=== PATIENT | male | born 1945 | race Caucasian/White ===

== ENCOUNTER 2017-05-23 15:38 | Observation (INO) ==
[2017-05-23] MEDS ORDERED: Nitroglycerin 0.4 MG TAB.SUBL SL PRN (16:08)
--- NOTE | 2017-05-23 16:08 | Emergency Department Note ---
Disposition Clinical Impression: Dizziness Chest pain Qualifiers: Chest pain type: unspecified Qualified Code(s): R07.9 - Chest pain, unspecified Disposition: Admitted As Inpatient Condition: Good Referrals: NONE,PCP [Primary Care Provider] - Forms: ED Satisfaction Letter Dizziness HPI - General Chief Complaint: ED Dizziness Stated Complaint: Weakness / Dizziness Time Seen by Provider: 05/23/17 15:45 Source: patient Mode of arrival: EMS Limitations: no limitations Nursing Notes Reviewed: Yes Vital Signs Reviewed: Yes - History of Present Illness HPI Narrative: 72-year-old male history of hypertension and hyperlipidemia presents to the ER via EMS with a chief complaint of dizziness, diaphoresis and chest pain. Patient reports that this morning around lunch when he was standing up he felt dizzy and broke out in a sweat. He states he went and laid down and the room was spinning whenever he was looking at the ceiling. He states he walked back in to the family room and he broke out into a sweat again. Patient called EMS for transport. Upon arrival he reports that his chest feels funny like there is pressure on it. He denies a prior history of CAD, PE. He reports a stress test several years ago without issue. He denies fevers, shortness of breath, cough, nausea, vomiting, diarrhea. Pt Subjective Complaint: dizziness Onset (ago): hour(s) Timing: sudden onset Description: "room spinning" History of similar episodes: No History of trauma: No Severity: moderate Improves with: remaining still Worsens with: nothing Associated symptoms: Reports: chest pain, diaphoresis. Denies: fever, shortness of breath, syncope - Related Data Home Medications Medication Instructions Recorded Confirmed Atorvastatin Calcium [Lipitor] 20 mg PO HS 04/08/16 05/23/17 Calcitriol 0.5 mcg PO DAILY 04/08/16 05/23/17 Calcium Carbonate/Vitamin D3 2 tab PO BID 04/08/16 05/23/17 [Calcium 600 + Vit D Tablet] Levothyroxine [Synthroid] 125 mcg PO MOTUWETHFRSA 04/08/16 05/23/17 Losartan Potassium [Cozaar] 50 mg PO BID 04/08/16 05/23/17 Metoprolol Tartrate [Lopressor] 50 mg PO TID 04/08/16 05/23/17 Omeprazole [PriLOSEC] 20 mg PO DAILY 04/08/16 05/23/17 Polyethylene Glycol 3350 [MiraLAX 1 scoop PO DAILY 04/08/16 05/23/17 Powder Bulk 17.9 Oz] hydrOXYzine HCl [Hydroxyzine HCl] 50 mg PO HS 04/08/16 05/23/17 Levothyroxine [Synthroid] 75 mcg PO JURADO 04/30/16 05/23/17 Allergies Allergy/AdvReac Type Severity Reaction Status Date / Time aspirin [ASA] Allergy Hives Verified 05/23/17 17:04 Penicillins [PCN] Allergy Rash Verified 05/23/17 17:04 All systems ED: reviewed and negative except as stated. Constitutional: Denies: fever Cardiovascular: Reports: chest pain Respiratory: Denies: cough, dyspnea Gastrointestinal: Denies: abdominal pain, nausea, vomiting Neurological: Reports: other (Dizziness) Past Medical History - Past Medical History Attestation: Yes The following information was validated with the patient. Source: patient Medical history: Reports: cancer, GERD, hyperlipidemia, hypertension, other Surgical history: Reports: cancer surgery, splenectomy, thyroidectomy, other Psychiatric history: Reports: no psych history - Social History Smoking Status: Never smoker Smokeless Tobacco Status: No Alcohol use: Reports: none Drug use: Reports: none Physical Exam - General Limitations: no limitations General appearance: alert, in no apparent distress - Head Head exam: atraumatic, normocephalic, normal inspection - Eye Eye exam: Present: normal appearance, EOMI - ENT ENT exam: normal exam - Neck Neck exam: Present: normal inspection, full ROM - Chest Chest inspection: Present: normal inspection, symmetric chest wall rise - Respiratory Respiratory exam: Present: normal lung sounds bilaterally - Cardiovascular Cardiovascular exam: Present: regular rate, normal rhythm, normal heart sounds - Abdominal Exam Abdominal exam: Present: soft, Non-Tender. Absent: tenderness - Extremities Exam Extremities exam: Present: normal inspection, full ROM - Expanded Upper Extremity Exam Shoulder exam: Present: normal inspection, full ROM Arm exam: Present: normal inspection, full ROM Elbow exam: Present: normal inspection, full ROM Forearm/Wrist exam: Present: normal inspection, full ROM Hand exam: Present: normal inspection, full ROM - Expanded Lower Extremity Exam Hip/Pelvis exam: Present: normal inspection, full ROM Upper leg exam: Present: normal inspection, full ROM Knee exam: Present: normal inspection, full ROM Lower leg exam: Present: normal inspection, full ROM Ankle exam: Present: normal inspection, full ROM Foot/toe exam: Present: normal inspection, full ROM Neurovascular/Tendon exam: Absent: motor deficit, sensory deficit - Neurological Exam Neurological exam: Present: alert, other (GCS 15. Nonfocal neurologic exam. Moves all extremities equally.) - Psychiatric Psychiatric exam: Present: normal affect, normal mood - Skin Skin exam: Present: warm, dry, intact, normal color Course Course Narrative: Patient seen and examined. Vital signs reviewed. He continues to have chest pressure here. We will get an EKG, chest x-ray as well as labs including troponin. Patient ordered nitroglycerin for chest pain. - Reevaluation(s) Reevaluation #1: I discussed results of imaging and lab work with the patient. He reports improvement in his symptoms after nitroglycerin. He is agreeable with be admitted to the hospital. Vital Signs Temperature 98.8 F 05/23/17 15:43 Pulse Rate 84 05/23/17 15:43 Respiratory Rate 14 05/23/17 15:43 Blood Pressure 147/87 05/23/17 15:43 O2 Sat by Pulse Oximetry 98 05/23/17 15:43 Temperature 98.8 F 05/23/17 15:43 Pulse Rate 80 05/23/17 17:48 Respiratory Rate 14 05/23/17 17:48 Blood Pressure 102/78 05/23/17 17:48 O2 Sat by Pulse Oximetry 96 05/23/17 17:48 Oxygen Delivery Oxygen Delivery Room Air Dizziness - MDM Narrative Medical decision making narrative: 72-year-old male presents to the ER due to dizziness and chest pain. Reports dizziness as well as diaphoresis this morning after standing. He continued to have chest pressure throughout the afternoon. His EKG is nonischemic. Troponin is negative. Patient given aspirin and nitroglycerin with improvement of his symptoms. Admitted to the hospitalist service for chest pain. - Lab Data Lab results reviewed: Yes I reviewed the patient's lab results. Result diagrams: 05/23/17 16:22 05/23/17 16:22 Lab Results 05/23/17 05/23/17 05/23/17 Range/Units 16:22 16:22 16:22 WBC 9.8 (4.3-11.1) K/mcL RBC 4.68 (4.19-5.50) M/mcL Hgb 12.1 L (12.9-16.9) g/dL Hct 38.0 (37.5-50.1) % MCV 81.2 L (83.0-100.0) fL MCH 25.9 L (28.0-33.3) pg MCHC 31.8 (31.6-35.5) g/dL RDW 16.4 H (11.5-14.5) % Plt Count 368 (140-400) K/mcL MPV 10.0 (9.4-12.4) fL Immature Gran % 0.3 (0-4) % Seg Neutrophils % 67.2 % Lymphocytes % 21.4 % Monocytes % 8.4 % Eosinophils % 2.2 % Basophils % 0.5 % Neutrophils # 6.6 (1.6-8.9) K/mcL Lymphocytes # 2.1 (0.6-4.6) K/mcL Monocytes # 0.8 (0.0-1.3) K/mcL Eosinophils # 0.2 (0.0-0.6) K/mcL Basophils # 0.1 (0.0-0.2) K/mcL Sodium 139 (136-145) mEq/L Potassium 4.4 (3.5-4.5) mEq/L Chloride 104 (98-109) mEq/L Carbon Dioxide 27 (19-29) mEq/L BUN 18 (8-26) mg/dL Creatinine 1.06 (0.72-1.25) mg/dL Est GFR ( Amer) > 60 (> 60) Est GFR (Non-Af Amer) > 60 (> 60) BUN/Creatinine Ratio 17 (6-26) Glucose 124 H (70-99) mg/dL Calculated Osmolality 291 (280-300) Calcium 9.0 (8.6-10.8) mg/dL Troponin I 0.02 (0-0.03) ng/mL B-Natriuretic Peptide (0-100) pg/mL 05/23/17 Range/Units 16:22 WBC (4.3-11.1) K/mcL RBC (4.19-5.50) M/mcL Hgb (12.9-16.9) g/dL Hct (37.5-50.1) % MCV (83.0-100.0) fL MCH (28.0-33.3) pg MCHC (31.6-35.5) g/dL RDW (11.5-14.5) % Plt Count (140-400) K/mcL MPV (9.4-12.4) fL Immature Gran % (0-4) % Seg Neutrophils % % Lymphocytes % % Monocytes % % Eosinophils % % Basophils % % Neutrophils # (1.6-8.9) K/mcL Lymphocytes # (0.6-4.6) K/mcL Monocytes # (0.0-1.3) K/mcL Eosinophils # (0.0-0.6) K/mcL Basophils # (0.0-0.2) K/mcL Sodium (136-145) mEq/L Potassium (3.5-4.5) mEq/L Chloride (98-109) mEq/L Carbon Dioxide (19-29) mEq/L BUN (8-26) mg/dL Creatinine (0.72-1.25) mg/dL Est GFR ( Amer) (> 60) Est GFR (Non-Af Amer) (> 60) BUN/Creatinine Ratio (6-26) Glucose (70-99) mg/dL Calculated Osmolality (280-300) Calcium (8.6-10.8) mg/dL Troponin I (0-0.03) ng/mL B-Natriuretic Peptide 135 H (0-100) pg/mL - Radiology Data Radiology results reviewed: Yes I reviewed the patient's radiology results. Chest X-Ray 05/23/17 15:45 IMPRESSION: Negative portable study. D/ / Cecilia Clifford Cha, MD / Cecilia Clifford Cha, MD Interpreting Provider: Cecilia Clifford Cha, MD - EKG Data EKG attestation: Yes I reviewed and interpreted this EKG. EKG results narrative: EKG demonstrates sinus rhythm with a rate of 85 bpm. Normal axis. Normal intervals. No ST elevations or depressions. No acute ischemic findings. S.B.A.R. - S.B.A.R. Situation: Demographics, MOA Background: Presenting Complaint, Relevant PMH, Meds, & Allergies Assessment: Vital Signs, Course and respsone to treatment, Exam Concerns, Patient/Family Expectation, Pertinant Lab Results, Outstanding Labs Recommendation: Barrier(s) to disposition, Recommendation based on pending studies, treatments, or consults Kate Report Given to: Colleen Love Repor Time: 18:02
[2017-05-23 16:38] LABS: Basophils # 0.1 K/mcL (0.0-0.2); Basophils % 0.5 %; Eosinophils # 0.2 K/mcL (0.0-0.6); Eosinophils % 2.2 %; Hemoglobin 12.1 g/dL (12.9-16.9); Immature Granulocytes % 0.3 % (0-4); Lymphocytes # 2.1 K/mcL (0.6-4.6); Lymphocytes % 21.4 %; Mean Corpuscular HGB Conc 31.8 g/dL (31.6-35.5); Mean Corpuscular Hemoglobin 25.9 pg (28.0-33.3); Mean Corpuscular Volume 81.2 fL (83.0-100.0); Monocytes # 0.8 K/mcL (0.0-1.3); Monocytes % 8.4 %; Neutrophils # 6.6 K/mcL (1.6-8.9); Platelet Count 368 K/mcL (140-400); Red Blood Count 4.68 M/mcL (4.19-5.50); Red Cell Distribution Width 16.4 % (11.5-14.5); Segmented Neutrophils % 67.2 %
--- NOTE | 2017-05-23 16:48 | Emergency Department Note ---
START Narrative - START START: I examined this patient and my medical decision-making was reviewed with the Resident Physician. I agree with the documented findings, disposition and treatment plan as described except to the extent set forth below. 72yo M here for dizziness, near syncope. ekg normal admit for cardiac obs.
[2017-05-23 16:51] LABS: BUN/Creatinine Ratio 17 (6-26); Blood Urea Nitrogen 18 mg/dL (8-26); Carbon Dioxide 27 mEq/L (19-29); Chloride 104 mEq/L (98-109); Glucose 124 mg/dL (70-99); Osmolality,Calculated 291 (280-300); Potassium 4.4 mEq/L (3.5-4.5); Sodium 139 mEq/L (136-145); eGFR For African Americans > 60 (> 60); eGFR For Non-African Americans > 60 (> 60)
[2017-05-23] MEDS ORDERED: Naloxone 0.4 MG/ML INJ IVP PRN (19:39)
[2017-05-23] MEDS ORDERED: Ondansetron 4 MG/2 ML VIAL IVP PRN (19:39)
--- NOTE | 2017-05-23 20:50 | Internal Med History&Physical ---
<Colleen Stratton - Last Filed: 05/23/17 20:41> Date of Encounter: 05/23/17 Time of Encounter: 20:41 Assessment and Plan (1) Chest pain Current visit: Yes Status: Acute 1 patient had episode of dizziness and diaphoretic nausea and midsternal chest pressure. This episode lasted approximately 30 minutes and was relieved with nitroglycerin. He does have past history of high blood pressure and hyperlipidemia no cardiac history in the past. His father did from an NC at age 75. Past stress test was in 2011 which was negative for ischemia. His troponin is 0.02 we will continue to trend troponins 2 continuous cardiac monitoring 3 nitrates and morphine as needed for chest pain 4 oxygen as needed 5 patient is allergic to aspirin we will give Plavix 6 we will continue with beta suyapa and statin we will check lipid profile 7 we will check TSH 8 we will obtain cardiac echo 9 patient nothing by mouth after midnight- cardiac stress in a.m. 10 consult cardiology as needed Qualifiers: Chest pain type: unspecified Qualified Code(s): R07.9 - Chest pain, unspecified (2) Hypertension Current visit: No Status: Chronic 1 presently controlled we will continue with losartan goal is to maintain systolic less than 140 2 low sodium diet Qualifiers: Hypertension type: essential hypertension Qualified Code(s): I10 - Essential (primary) hypertension (3) Thyroid disease Current visit: No Status: Chronic 1 patient has past history of thyroid cancer with thyroidectomy. We will check TSH we will consider with Synthroid (4) Hyperlipidemia Current visit: No Status: Chronic Continue with statin we will check lipids Qualifiers: Hyperlipidemia type: unspecified Qualified Code(s): E78.5 - Hyperlipidemia , unspecified (5) DVT prophylaxis Current visit: Yes Status: Acute [facility] Internal Medicine - H&P: HPI Chief complaint: CP dizziness Admitted From: Emergency Dept Plans for Post Hospital Care: Home History of present illness: Mr. Kerns is a 72 year old male past medical history of hypertension Hodgkin' s lymphoma with splenectomy 1971 thyroid cancer with total thyroidectomy in 2007 hyperlipidemia. According to the patient he was sitting at his computer around lunchtime when he stood up and he felt dizzy. Broke out in a cold sweat. He states he went to lie down and he felt that the room was spinning whenever he would look at the ceiling he then walked back to his family room and he broke out into cold sweating again and he felt nauseated and lightheaded and had a chest pressure 4/5 midsternal nonradiating. There were no relieving or aggravating factors the episode lasted approximately 30 minutes. He did call EMS upon arrival they did give him nitroglycerin which did relieve his chest pressure. He was brought to the ER for evaluation. Upon arrival to the ER lab work did reveal BNP 135 troponin was 0.02 with a lab work was within unremarkable. Chest x-ray was completed which was clear. EKG normal sinus rhythm with no ST-T wave abnormalities. His been admitted for further workup and evaluation. Domenico patient denies any chest pain he does not appear to be for distress. He denies any fevers chills nausea vomiting diarrhea abdominal pain or shortness of breath. He does say he had a stress test in 1999 1208 he has had no other cardiac workup. He does not have a cardiac history His lung sounds are clear heart sounds are regular S1 and S2 he does have a systolic murmur 3/6. Abdomen soft and nontender he does have pedal edema which she states is chronic. He is sinus rhythm on the monitor he is hemodynamically stable this time. I reviewed his case with Dr. Rob who agrees with plan Past Med Surg Social Fam HX - Past Medical History Medical history: cancer, GERD, hyperlipidemia, hypertension, other Psychiatric history: no psych history - Past Surgical History Surgical History: cancer surgery, splenectomy, thyroidectomy, other - Social History Smoking Status: Never smoker Smokeless Tobacco Status: No Alcohol use: none Drug use: none - Family History Father Hx Family Cardiac Disorders: Yes (NC, HTN) Mother Hx Family Neurologic Disorders: Yes (CVA) Internal Medicine - H&P: Meds Atorvastatin Calcium [Lipitor] 20 mg PO HS 04/08/16 [History] Calcitriol 0.5 mcg PO DAILY 04/08/16 [History] Calcium Carbonate/Vitamin D3 [Calcium 600 + Vit D Tablet] 2 tab PO BID 04/08/16 [History] Levothyroxine [Synthroid] 125 mcg PO MOTUWETHFRSA 04/08/16 [History] Losartan Potassium [Cozaar] 50 mg PO BID 04/08/16 [History] Metoprolol Tartrate [Lopressor] 50 mg PO TID 04/08/16 [History] Omeprazole [PriLOSEC] 20 mg PO DAILY 04/08/16 [History] Polyethylene Glycol 3350 [MiraLAX Powder Bulk 17.9 Oz] 1 scoop PO DAILY [History] hydrOXYzine HCl [Hydroxyzine HCl] 50 mg PO HS 04/08/16 [History] Levothyroxine [Synthroid] 75 mcg PO JURADO 04/30/16 [History] 3 Allergy/AdvReac Type Severity Reaction Status Date / Time aspirin [ASA] Allergy Hives Verified 05/23/17 17:04 Penicillins [PCN] Allergy Rash Verified 05/23/17 17:04 All Systems PM: A 10-system review of systems was performed and is negative for pertinent findings except as documented above in the HPI. - Constitutional Constitutional: fatigue, no chills, no fever(s), no night sweats - EENT Eyes: no change in vision, no discharge, no pain, no photophobia Nose, mouth and throat: no dysphagia, no nasal discharge, no neck pain, no sore throat - Cardiovascular Cardiovascular ROS IM: chest pain, diaphoresis, edema, lightheadedness, no dyspnea, no palpitations, no syncope - Respiratory Respiratory: no cough, no dyspnea, no wheezing, no excessive phlegm production - Gastrointestinal Gastrointestinal: no abdominal pain, no diarrhea, no hematemesis, no hematochezia, no melena, no nausea, no vomiting - Musculoskeletal Musculoskeletal ROS IM: no numbness, no tingling - Integumentary Integumentary IM: no rash, no unusual bruising - Neurological Neurological ROS: no confusion, no convulsions, no focal weakness, no numbness, no tingling, no tremor(s) - Hematologic/Lymphatic Hematologic/Lymphatic: no easy bruising - Constitutional Vitals: Temp Pulse Resp BP Pulse Ox 97.6 F 92 16 137/82 100 05/23/17 19:20 05/23/17 19:20 05/23/17 19:20 05/23/17 19:20 05/23/17 19:20 General appearance: Present: A&O X 3, answers questions appropriately - Head Head exam: Present: atraumatic, normocephalic - Eye Eye exam: Present: PERRL, conjuntiva pink, sclera anicteric Pupils: Present: PERRL - Neck Neck exam general surgery: Present: supple, trachea midline. Absent: lymphadenopathy - Respiratory Respiratory exam: Present: CTAB. Absent: accessory muscle use, rales, rhonchi, wheezes - Cardiovascular Cardiovascular exam: Present: RRR, +S1, +S2, systolic murmur. Absent: diastolic murmur, gallop, rubs - GI/Abdominal GI/Abdominal exam: Present: normal bowel sounds, soft, no peritoneal signs. Absent: distended, tenderness - Extremities Exam Extremities exam: Present: warm, radial pulses palpable and symmetrical. Absent : calf tenderness, cyanotic, pedal edema - Neurological Exam Neurological exam: Present: CN II-XII intact, oriented X3, no focal deficits. Absent: pronater drift, facial droop, speech deficit - Skin Skin exam: Present: dry, intact Internal Med - H&P Results - Labs CBC & Chem 7: 05/23/17 16:22 05/23/17 16:22 - EKG Data EKG shows normal: sinus rhythm - EKG Data Prior EKG available for review: no - Diagnostic Studies Chest x-ray Additional comments: Chest X-Ray 05/23/17 15:45 IMPRESSION: Negative portable study. D/ / Cecilia Clifford Cha, MD / Cecilia Clifford Cha, MD Interpreting Provider: Cecilia Clifford Cha, MD <Kolby Rob - Last Filed: 05/23/17 23:34> Date of Encounter: 05/23/17 Internal Medicine - H&P: HPI History of present illness: Mr. Kerns is a 72 year old male All Systems PM: A 10-system review of systems was performed and is negative for pertinent findings except as documented above in the HPI. - Constitutional Vitals: Temp Pulse Resp BP Pulse Ox 97.6 F 92 16 137/82 100 05/23/17 19:20 05/23/17 19:20 05/23/17 19:20 05/23/17 19:20 05/23/17 19:20 Internal Med - H&P Results - Labs CBC & Chem 7: 05/23/17 16:22 05/23/17 16:22 - Attending Attestation I independently obtained history and examined this patient and my medical decision-making was reviewed with the nurse practitioner, Colleen Stratton. I agree with the documented findings, disposition and treatment plan as described. My findings are summarized below: Patient presented today with sudden onset of severe dizziness and feeling faint. His symptoms got worse when he went to lie down and started having severe spinning sensation. Also experienced mild to moderate substernal chest pressure that lasted for about an hour. On exam he is in no acute distress heart auscultation reveals regular S1-S2. Lungs are clear Troponin was 0.02, EKG reviewed by myself shows normal sinus rhythm 85 bpm, no ST or T-wave changes. Assessment and plan: We will place in observation and start workup for syncope including heart monitor, trend troponin, echocardiogram and orthostatic vital signs.
[2017-05-23] MEDS ORDERED: hydrOXYzine pamoate 25 MG CAPSULE PO SCH (21:00)
[2017-05-23] MEDS ORDERED: Acetaminophen 325 MG TABLET PO PRN (21:04)
[2017-05-23] MEDS ORDERED: *HR* Morphine 2 MG/ML SYRINGE IVP PRN (21:04)
[2017-05-23] MEDS ORDERED: 0.9 % Sodium Chloride 1,000 ML IVC SCH (21:30)
[2017-05-24 05:36] LABS: Basophils # 0.1 K/mcL (0.0-0.2); Basophils % 0.5 %; Eosinophils # 0.3 K/mcL (0.0-0.6); Eosinophils % 3.5 %; Hematocrit 35.6 % (37.5-50.1); Hemoglobin 11.8 g/dL (12.9-16.9); Immature Granulocytes % 0.2 % (0-4); Lymphocytes # 3.8 K/mcL (0.6-4.6); Lymphocytes % 38.5 %; Mean Corpuscular HGB Conc 33.1 g/dL (31.6-35.5); Mean Corpuscular Hemoglobin 26.7 pg (28.0-33.3); Mean Corpuscular Volume 80.5 fL (83.0-100.0); Mean Platelet Volume 9.7 fL (9.4-12.4); Monocytes # 1.1 K/mcL (0.0-1.3); Monocytes % 11.7 %; Neutrophils # 4.5 K/mcL (1.6-8.9); Platelet Count 346 K/mcL (140-400); Red Blood Count 4.42 M/mcL (4.19-5.50); Red Cell Distribution Width 16.5 % (11.5-14.5); Segmented Neutrophils % 45.6 %
[2017-05-24 05:42] LABS: BUN/Creatinine Ratio 14 (6-26); Blood Urea Nitrogen 14 mg/dL (8-26); Calcium 8.4 mg/dL (8.6-10.8); Carbon Dioxide 27 mEq/L (19-29); Chloride 106 mEq/L (98-109); Chol/HDL Ratio 4.4 (0-4.9); Cholesterol 160 mg/dL (< 200); Glucose 101 mg/dL (70-99); HDL Cholesterol 36 mg/dL (40-59); LDL Cholesterol,Calculated 105 mg/dL (0-99); Magnesium 1.7 mg/dL (1.6-2.6); Osmolality,Calculated 289 (280-300); Potassium 4.5 mEq/L (3.5-4.5); Sodium 139 mEq/L (136-145); Triglycerides 96 mg/dL (< 150); eGFR For African Americans > 60 (> 60); eGFR For Non-African Americans > 60 (> 60)
[2017-05-24 05:58] LABS: Thyroid Stimulating Hormone 0.285 mcIU/mL (0.350-4.840)
[2017-05-24] MEDS ORDERED: *HR* Enoxaparin 40 MG/0.4 ML SYRINGE SQ SCH (07:00)
[2017-05-24] MEDS ORDERED: Regadenoson 0.4 MG/5 ML SYRINGE IVP ONE (07:06)
--- NOTE | 2017-05-24 12:19 | Nuclear Medicine Stress Report ---
Regadenoson Nuclear Stress Name: Wm Kerns Date of Study: 05/24/2017 Date: 1945 Ht: 68.0 in Medical Record#: [id number] Age: 72 Wt: 218.0 lb Gender: Male Order #: [id number] Location: [facility] Room: [facility] Supervising Provider: Genny Gan CNP Reading Physician: Rosanna Otto DO Ordering Physician: Callie Aleman CNP Primary Care Physician: Fidencio Garcia MD Stress Technologist: Cielo Small, TEAROOM HOST/HOSTESS, CCT, CPFT Relief Operator: Eduardo Patrick Indications: Chest Pain, Syncope Impression: Perfusion imaging was negative for ischemia or infarct. Pharmacologic ECG was negative for ischemia at the level of heart rate achieved. Gated EF = >70%. History: Hypertension Hypercholesteremia Stress Test Summary: Stress Test Type: Pharmacologic Regadenoson 0.4mg/5ml given IV Baseline Information: Initial Heart Rate: 89 Blood Pressure: 128/86 Stress Information: Stress Time: 4 min sec Test Terminated Due to (primary): As per protocol Maximum Blood Pressure: 104/50 Maximum Heart Rate: 102 Percent Maximum Heart Rate Achieved: 68 Double Product: [id number] METS Reached: 1 Symptoms: Shortness of breath, Nausea, Dizziness Nuclear Summary: SPECT myocardial perfusion imaging using Tc99m Sestamibi given intravenously was performed at rest and following cardiac stress testing. The resting images were obtained following initial dose of 11.5 mCi. Following stress an additional dose of 31.7 mCi was given at peak exercise or 30 seconds post regadenoson infusion. Medication Given: Time Medication Dose Units Route Findings: Stress Note * Resting ECG demonstrated normal sinus rhythm. * Pharmacologic stress ECG is negative for ischemia at level of heart rate achieved. * No arrhythmias were noted during stress. * Patient had no chest pain during stress. Hemodynamic responses * Normal hemodynamic responses to pharmacologic stress. Study Quality * Study quality was fair. Gated EF > 70% * Gated EF > 70%. Left Ventricle * The left ventricle is not dilated. TID * No evidence of transient ischemic dilatation. Lung Uptake * There is no evidence of increase lung uptake. NORMALS * Normal wall motion. PERFUSION * Homogeneous rest and stress radiotracer perfusion uptake without evidence for infarct or ischemia. Updated by Rosanna Otto on 05/24/2017 12:14:21 PM electronically signed on 05/24/2017 12:16:12 PM with status of Final
--- NOTE | 2017-05-24 18:05 | Electrocardiograph Report ---
[place] [id number] Test Date: 2017-05-23 Pat Name: Wm Kerns Department: 102 Room: 3B38 Gender: M [employer] Attendant: Ekp : 1945 Requested By: Christiano Ferrer Order Number: [id number] Reading MD: Zafar Singer MD Measurements Intervals [place] Rate: 85 P: 41 SC: 180 QRS: 21 QRSD: 80 T: 25 QT: 365 QTc: 407 Interpretive Statements SINUS RHYTHM BASELINE ARTIFACT Electronically Signed On 05-24-2017 18:03:37 EDT by Zafar Singer MD
[2017-05-24 18:43] VITALS: BP 131/81
--- NOTE | 2017-05-24 19:08 | Internal Med Progress Note ---
Date of Encounter: 05/24/17 Time of Encounter: 16:30 - Assessment and plan (1) Chest pain Current Visit: Yes Status: Acute Assessment and plan: Episode of dizziness, diaphoresis, nausea, midsternal chest pressure that lasted 30 minutes prior to arrival. Resolved with nitroglycerin in the emergency department. Troponins were negative 3. Chest x-ray negative for any acute disease processes. Stress test negative for ischemia or infarct with a gated EF of greater than 70%. Echo results are still pending. Patient denies chest pain, dizziness, nausea, diaphoresis. There is no peripheral edema. His lungs are clear. Continue telemetry Nitrates and morphine as needed for chest pain Oxygen as needed to maintain sats greater than 92% Patient is allergic to aspirin so he was started on Plavix Continue beta suyapa and statin Echocardiogram and stress test ordered and pending Consult cardiology as needed. Qualifiers: Chest pain type: unspecified Qualified Code(s): R07.9 - Chest pain, unspecified (2) Dizziness Current Visit: Yes Status: Acute Assessment and plan: Dizziness was a symptom of initial onset of problems. He has had none since. Resolved. (3) Hypertension Current Visit: No Status: Resolved Qualifiers: Hypertension type: essential hypertension Qualified Code(s): I10 - Essential (primary) hypertension (4) Thyroid disease Current Visit: No Status: Chronic Assessment and plan: Patient has history of thyroid cancer and thyroidectomy. Continue Synthroid. TSH is low at 0.285. Follow-up with primary care for medication adjustments as needed. (5) Hyperlipidemia Current Visit: No Status: Chronic Assessment and plan: Chronic. Continue home medications. Qualifiers: Hyperlipidemia type: unspecified Qualified Code(s): E78.5 - Hyperlipidemia , unspecified (6) DVT prophylaxis Current Visit: Yes Status: Acute Assessment and plan: Lovenox subcutaneous. - Time Spent With Patient less than 15 minutes - Subjective Interval history: Patient was seen and examined at 1630 with [place] [employer]arshal in the room. He reports lying down to take a nap yesterday, reporting that the room was spinning and he had some midsternal chest tightness without radiation. He says he was nauseated profusely diaphoretic and soaked his clothing. Initially this morning he refused his echocardiogram because he did not know what it was. He also delayed the start of his stress test because he was concerned about cost. He said that he just bought a new car and actually called the car dealership to try to return the car as he was worried about leaving his with a large bill. Later in the afternoon, his echocardiogram has not been done and as we are looking for the results, he became angry and required intervention of the [place] marshal. Initially he was going to sign out AMA, however I did finally get to assess him and as of this time 1900, his echo results are not back. Patient was okay with spending the night and getting results in the morning. He denies any other chest pain, nausea, vomiting, diaphoresis, dizziness since the episode prior to arrival. - Constitutional Vitals: Temp Pulse Resp BP Pulse Ox 98.2 F 84 14 131/81 96 05/24/17 18:42 05/24/17 18:42 05/24/17 18:42 05/24/17 18:42 05/24/17 18:42 General appearance: Present: A&O X 3, answers questions appropriately - Head Head exam: Present: atraumatic, normocephalic - Eye Eye exam: Present: PERRL, conjuntiva pink, sclera anicteric Pupils: Present: PERRL - Neck Neck exam general surgery: Present: supple, trachea midline. Absent: lymphadenopathy - Respiratory Respiratory exam: Present: CTAB. Absent: accessory muscle use, rales, rhonchi, wheezes - Cardiovascular Cardiovascular exam: Present: RRR, +S1, +S2. Absent: diastolic murmur, gallop, rubs, systolic murmur - GI/Abdominal GI/Abdominal exam: Present: normal bowel sounds, soft, no peritoneal signs. Absent: distended, tenderness - Extremities Exam Extremities exam: Present: warm, radial pulses palpable and symmetrical. Absent : calf tenderness, cyanotic, pedal edema - Neurological Exam Neurological exam: Present: CN II-XII intact, oriented X3, no focal deficits. Absent: pronater drift, facial droop, speech deficit - Skin Skin exam: Present: dry, intact Internal Medicine: Result - Labs CBC & Chem 7: 05/24/17 05:17 05/24/17 05:17 Labs: Short CBC 05/24/17 Range/Units 05:17 WBC 9.8 (4.3-11.1) K/mcL Hgb 11.8 L (12.9-16.9) g/dL Hct 35.6 L (37.5-50.1) % Plt Count 346 (140-400) K/mcL Neutrophils # 4.5 (1.6-8.9) K/mcL BMP 05/24/17 05:17 Sodium 139 Potassium 4.5 Chloride 106 Carbon Dioxide 27 BUN 14 Creatinine 1.02 Glucose 101 H Calcium 8.4 L Cardiac Enzymes 05/23/17 05/24/17 Range/Units 23:08 05:17 Troponin I 0.00 0.01 (0-0.03) ng/mL Consult Discharge Plan - Plan Referrals: Fidencio Garcia MD [Primary Care Provider] -
--- NOTE | 2017-05-24 20:35 | Discharge Summary ---
Date of Encounter: 05/24/17 Time of Encounter: 20:32 - Discharge Diagnosis (1) Chest pain Priority: Primary Status: Acute Qualifiers: Chest pain type: unspecified Qualified Code(s): R07.9 - Chest pain, unspecified (2) Dizziness Priority: Secondary Status: Acute (3) Hypertension Priority: Secondary Status: Resolved Qualifiers: Hypertension type: essential hypertension Qualified Code(s): I10 - Essential (primary) hypertension (4) Thyroid disease Priority: Secondary Status: Chronic (5) Hyperlipidemia Priority: Secondary Status: Chronic Qualifiers: Hyperlipidemia type: unspecified Qualified Code(s): E78.5 - Hyperlipidemia , unspecified - Discharge Medications Home Medications: Atorvastatin Calcium [Lipitor] 20 mg PO HS 04/08/16 [History] Calcitriol 0.5 mcg PO DAILY 04/08/16 [History] Calcium Carbonate/Vitamin D3 [Calcium 600 + Vit D Tablet] 2 tab PO BID 04/08/16 [History] Levothyroxine [Synthroid] 125 mcg PO MOTUWETHFRSA 04/08/16 [History] Losartan Potassium [Cozaar] 50 mg PO BID 04/08/16 [History] Metoprolol Tartrate [Lopressor] 50 mg PO TID 04/08/16 [History] Omeprazole [PriLOSEC] 20 mg PO DAILY 04/08/16 [History] Polyethylene Glycol 3350 [MiraLAX Powder Bulk 17.9 Oz] 1 scoop PO DAILY [History] hydrOXYzine HCl [Hydroxyzine HCl] 50 mg PO HS 04/08/16 [History] Levothyroxine [Synthroid] 62.5 mcg PO JURADO 04/30/16 [History] Allergies/Adverse Reactions: 3 Allergy/AdvReac Type Severity Reaction Status Date / Time aspirin [ASA] Allergy Hives Verified 05/23/17 17:04 Penicillins [PCN] Allergy Rash Verified 05/23/17 17:04 Procedures/tests Complete & Pending: Procedures Performed prior 72 hours Category Date Time Status NM tyrel perf SPECT multi [NM] Routine Exams 05/24/17 07:50 Taken EV echocardiogram Routine Y 05/24/17 17:00 Ordered SP pharm nuclear stress Routine Y 05/24/17 07:40 Completed Date of admission: 05/23/17 18:29 Primary care physician: Fidencio Garcia MD Consults: 05/24/17 09:08 Consult to [employer] [CONS] Routine Reason for SW Consult: financial concerns - Patient Status Disposition: Home, Self-Care Condition: Good Functional capacity at discharge: independent ambulation Overall status at discharge: patient is back to baseline - Discharge Instructions Follow Up With: Fidencio Garcia MD [Primary Care Provider] - - Diet and Activity Activity: increase activity as tolerated Diet: advance to your usual diet, low fat, low cholesterol, low salt diet Hospital course: Mr. Kerns is a 72 year old male with a past medical history significant for hypertension and non-Hodgkin's lymphoma who presented to the hospital due to a episode of sudden onset dizziness and spinning sensation followed by midsternal chest pressure. His initial workup in the emergency department revealed normal EKG and normal troponin. He was placed in observation. Serial troponin remained negative. He had a stress test which was read as negative for ischemia , gaited EF greater than 70%. He had an echocardiogram which at the time of discharge is pending. He had no recurrence of chest pain. He is currently back to baseline. His TSH is low but he does not have any clinical signs or symptoms of hypo-or hyperthyroidism. He is medically stable for discharge home. I informed the patient that the result of his echocardiogram is pending and I will call him if there are any abnormalities that require urgent or emergent follow-up. Otherwise he will follow up this result with his PCP. He expresses understanding and agreement with the discharge planning. - Time Spent with Patient Total time spent providing and/or coordinating discharge services: - Constitutional Vitals: Temp Pulse Resp BP Pulse Ox 98.2 F 84 14 131/81 96 05/24/17 18:42 05/24/17 18:42 05/24/17 18:42 05/24/17 18:42 05/24/17 18:42 General appearance: Present: A&O X 3, answers questions appropriately - Respiratory Respiratory exam: Present: CTAB. Absent: accessory muscle use, rales, rhonchi, wheezes - Cardiovascular Cardiovascular exam: Present: RRR, +S1, +S2. Absent: diastolic murmur, gallop, rubs, systolic murmur
== END 2017-05-24 20:54 | disposition home or self-care (01) ==
LOC: EMEROO 15:38 → 3BNU 15:38 → EMEROO 16:14 → 3BNU 19:16
PROVIDERS: ADMIT Nurse Practitioner Acute Care; ATTEND Registered Nurse